=== PATIENT | female | born 2000 | race Caucasian/White ===

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

== ENCOUNTER 2020-10-12 16:36 | Emergency (ER) | payer MEDICAID, OTHER ==
[~2020-10-12] VITALS: Ht 170.1 cm; Wt 52.0 kg
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
--- NOTE | 2020-10-12 18:39 | Diagnostic Imaging Report ---
INDICATION: Injury with head and neck pain. TECHNIQUE: Multiple contiguous axial images were obtained through the brain and cervical spine without the use of intravenous contrast. Sagittal and coronal reformations through the cervical spine were then performed. Auto Exposure Controls were utilized during the CT exam to meet ALARA standards for radiation dose reduction. COMPARISON: There is no previous study for comparison. CT brain findings: There is no extra-axial fluid collection. No intracranial hemorrhage. No intracranial mass or mass effect. No midline shift. The ventricles are normal in size and position. There is no focal parenchymal abnormality in the brain. Orbital contents appear unremarkable. Calvarial windows show no fracture. Visualized portions of the mastoid air cells and sinuses are well aerated. CT cervical spine findings: There is no evidence of cervical spine fracture. There is no subluxation or malalignment. IMPRESSION: 1. Negative CT head. 2. Negative CT cervical spine. Dictated by: Dictated on workstation # [id number]
[2020-10-12 18:49] VITALS: BP 116/70
== END 2020-10-12 18:49 | disposition home or self-care (01) ==
LOC: EDUNIT# 16:36 → ER 16:38
DX: S06.0X0A Concussion without loss of consciousness, initial encounter (principal); Z79.52 Long term (current) use of systemic steroids; W06.XXXA Fall from bed, initial encounter
CPT/HCPCS: 70450; 72125

== ENCOUNTER → 2021-05-28 | Outpatient (CLI) | payer MEDICAID, OTHER ==
--- NOTE | 2021-05-28 15:37 | Diagnostic Imaging Report ---
INDICATION: Left shoulder pain. TIME OF EXAMINATION: 2:55 PM. TECHNIQUE: Three views of the left shoulder were obtained. FINDINGS: The glenohumeral and acromioclavicular alignment is normal. The acromiohumeral space is normal. No fracture or dislocation is identified. IMPRESSION: No acute bony abnormality is detected. Dictated by: Dictated on workstation # [id number]
== END ==
LOC: RAD 14:41
PROVIDERS: ATTEND Nurse Practitioner Family
DX: M25.512 Pain in left shoulder (principal)
CPT/HCPCS: 73030